=== PATIENT | female | born 1970 | race Caucasian/White ===

== ENCOUNTER 2022-11-11 13:10 | Emergency (ER) | payer BC ==
[2022-11-11] MEDS ORDERED: Dexamethasone 10 MG/ML VIAL ONE (15:23)
== END 2022-11-11 15:59 | disposition home or self-care (01) ==
LOC: CSHERS 13:10
DX: T78.40XA Allergy, unspecified, initial encounter (principal); E03.9 Hypothyroidism, unspecified; E78.5 Hyperlipidemia, unspecified
CPT/HCPCS: 96372; 99284; J1100

== ENCOUNTER 2023-12-15 14:36 | Outpatient (CLI) | payer BC ==
[2023-12-15 16:54] LABS: Hematocrit 36.7 % (34.9-44.5)
== END 2023-12-15 14:37 | disposition home or self-care (01) ==
LOC: CSHLAB 14:36
PROVIDERS: ATTEND Otolaryngology
DX: Z01.818 Encounter for other preprocedural examination (principal); Q89.2 Congenital malformations of other endocrine glands
CPT/HCPCS: 85014; 93005; 93010